=== PATIENT | female | born 1960 | race Caucasian/White ===

== ENCOUNTER 2018-05-31 13:48 | Emergency (ER) | payer MEDICAID ==
[~2018-05-31] VITALS: Ht 154.9 cm; Wt 68.2 kg
[~2018-05-31 13:48] MED LIST: AMLO2.5T2 PO; ASPI-1265 PO; LISI-600 PO; SIMV20TA5 PO; TRAZ-218 PO
[2018-05-31 13:50] VITALS: BP 122/81
[2018-05-31 14:30] LABS: BASOPHILS % (AUTO) 0.4 % (0-1); EOSINOPHILS # (AUTO) 0.2 X10'3 (0-0.9); EOSINOPHILS % (AUTO) 3.6 % (0-6); HEMATOCRIT 39.7 % (35.0-45.0); HEMOGLOBIN 13.3 g/dl (12.0-16.0); LYMPHOCYTES # (AUTO) 1.9 X10'3 (1.1-4.8); LYMPHOCYTES % (AUTO) 26.8 % (21-51); MEAN CORPUSCULAR HEMOGLOBIN 28.8 PG (27.0-31.0); MEAN CORPUSCULAR HGB CONC 33.4 % (33.0-36.5); MEAN CORPUSCULAR VOLUME 86.3 FL (78-98); MEAN PLATELET VOLUME 7.9 FL (7.4-10.4); MONOCYTES # (AUTO) 0.5 X10'3 (0-0.9); NEUTROPHILS # (AUTO) 4.3 X10'3 (1.8-7.7); NEUTROPHILS % (AUTO) 62.2 % (42-75); PLATELET COUNT 214 X10'3 (140-440); WHITE BLOOD COUNT 6.9 X10'3 (4.5-11.0)
[2018-05-31 14:35] LABS: ALANINE AMINOTRANSFERASE 14 U/L (12-78); ALBUMIN 3.6 G/DL (3.4-5.0); ALBUMIN/GLOBULIN RATIO 0.9 (1.1-1.5); ALKALINE PHOSPHATASE 84 IU/L (46-116); ANION GAP 9 (8-16); ASPARTATE AMINO TRANSFERASE 14 U/L (10-37); BILIRUBIN,TOTAL 0.4 MG/DL (0.1-1.0); BLOOD UREA NITROGEN 10 MG/DL (7-18); CHLORIDE 103 MMOL/L (99-107); CREATININE 0.91 MG/DL (0.40-0.90); GLUCOSE 109 MG/DL (70-104); POTASSIUM 3.7 MMOL/L (3.5-5.1); SODIUM 141 MMOL/L (135-145); TOTAL CARBON DIOXIDE 29.2 MMOL/L (24-32); TOTAL PROTEIN 7.8 G/DL (6.4-8.2); eGFR 64 ML/MIN
[2018-05-31 14:41] LABS: PARTIAL THROMBOPLASTIN TIME 27 SECONDS (22-32)
== END 2018-05-31 17:51 | disposition home or self-care (01) ==
LOC: ER 13:49
DX: R07.2 Precordial pain (principal); I10 Essential (primary) hypertension; G35 Multiple sclerosis; F17.200 Nicotine dependence, unspecified, uncomplicated; Z86.73 Personal history of transient ischemic attack (TIA), and cerebral infarction without residual deficits; Z90.49 Acquired absence of other specified parts of digestive tract; Z56.0 Unemployment, unspecified; Z79.899 Other long term (current) drug therapy; Z79.82 Long term (current) use of aspirin; Z88.5 Allergy status to narcotic agent; Z88.8 Allergy status to other drugs, medicaments and biological substances
CPT/HCPCS: 36415; 71045; 80053; 84484; 85025; 85610; 85730; 93005; 99284

== ENCOUNTER 2020-09-03 16:01 | Emergency (ER) | payer MEDICAID ==
[~2020-09-03] VITALS: Ht 154.9 cm; Wt 63.6 kg
[~2020-09-03 16:01] MED LIST changes: -LISI-600 PO; +LISI20TA28 PO; -TRAZ-218 PO; +TRAZ-251 PO
[2020-09-03 16:21] VITALS: BP 148/83
[2020-09-03 16:47] LABS: BASOPHILS % (AUTO) 0.5 % (0-1); EOSINOPHILS # (AUTO) 0.2 X10'3 (0-0.9); EOSINOPHILS % (AUTO) 2.2 % (0-6); HEMATOCRIT 40.8 % (35.0-45.0); HEMOGLOBIN 13.3 g/dl (12.0-16.0); LYMPHOCYTES # (AUTO) 1.5 X10'3 (1.1-4.8); LYMPHOCYTES % (AUTO) 20.1 % (21-51); MEAN CORPUSCULAR HEMOGLOBIN 28.2 PG (27.0-31.0); MEAN CORPUSCULAR HGB CONC 32.6 g/dL (33.0-36.5); MEAN CORPUSCULAR VOLUME 86.6 FL (78-98); MEAN PLATELET VOLUME 7.7 FL (7.4-10.4); MONOCYTES # (AUTO) 0.6 X10'3 (0-0.9); MONOCYTES % (AUTO) 7.7 % (2-12); NEUTROPHILS # (AUTO) 5.3 X10'3 (1.8-7.7); NEUTROPHILS % (AUTO) 69.5 % (42-75); PLATELET COUNT 215 X10'3 (140-440); RED BLOOD COUNT 4.71 X10'6 (4.20-5.60); RED CELL DISTRIBUTION WIDTH 15.8 % (11.5-14.5); WHITE BLOOD COUNT 7.7 X10'3 (4.5-11.0)
[2020-09-03 16:58] LABS: ALANINE AMINOTRANSFERASE 16 U/L (12-78); ALBUMIN 3.7 G/DL (3.4-5.0); ALBUMIN/GLOBULIN RATIO 0.9 (1.1-1.5); ALKALINE PHOSPHATASE 91 IU/L (46-116); ANION GAP 7 (8-16); ASPARTATE AMINO TRANSFERASE 12 U/L (10-37); BILIRUBIN,TOTAL 0.3 MG/DL (0.1-1.0); BLOOD UREA NITROGEN 8 MG/DL (7-18); BUN/CREATININE RATIO 9.1 (6.6-38.0); CALCIUM 9.3 MG/DL (8.5-10.1); CHLORIDE 108 MMOL/L (99-107); CREATININE 0.88 MG/DL (0.40-0.90); GLUCOSE 97 MG/DL (70-104); POTASSIUM 3.5 MMOL/L (3.5-5.1); SODIUM 145 MMOL/L (135-145); TOTAL CARBON DIOXIDE 29.7 MMOL/L (24-32); eGFR 66 ML/MIN
== END 2020-09-03 20:13 | disposition home or self-care (01) ==
LOC: ER 16:02
DX: R07.89 Other chest pain (principal); I10 Essential (primary) hypertension; Z86.73 Personal history of transient ischemic attack (TIA), and cerebral infarction without residual deficits; Z90.89 Acquired absence of other organs; Z98.890 Other specified postprocedural states; Z72.89 Other problems related to lifestyle; Z56.0 Unemployment, unspecified; Z88.8 Allergy status to other drugs, medicaments and biological substances; Z79.82 Long term (current) use of aspirin; Z79.899 Other long term (current) drug therapy
CPT/HCPCS: 36415; 71045; 80053; 83880; 84484; 85025; 93005; 99285

== ENCOUNTER 2021-04-02 12:02 | Emergency (ER) | payer MEDICAID ==
[~2021-04-02] VITALS: Ht 154.9 cm; Wt 65.9 kg
[2021-04-02 12:08] VITALS: BP 164/76
[2021-04-02] MEDS ORDERED: ketorolac tromethamine 15mg/ml inj. IM ONE (13:40)
[2021-04-02 14:30] LABS: BASOPHILS % (AUTO) 0.6 % (0-1); EOSINOPHILS # (AUTO) 0.2 X10'3 (0-0.9); EOSINOPHILS % (AUTO) 3.3 % (0-6); HEMATOCRIT 38.1 % (35.0-45.0); HEMOGLOBIN 12.6 g/dl (12.0-16.0); LYMPHOCYTES # (AUTO) 1.6 X10'3 (1.1-4.8); LYMPHOCYTES % (AUTO) 25.2 % (21-51); MEAN CORPUSCULAR HEMOGLOBIN 28.2 PG (27.0-31.0); MEAN CORPUSCULAR VOLUME 85.5 FL (78-98); MEAN PLATELET VOLUME 7.9 FL (7.4-10.4); MONOCYTES # (AUTO) 0.6 X10'3 (0-0.9); MONOCYTES % (AUTO) 8.7 % (2-12); NEUTROPHILS # (AUTO) 4.1 X10'3 (1.8-7.7); NEUTROPHILS % (AUTO) 62.2 % (42-75); PLATELET COUNT 221 X10'3 (140-440); RED BLOOD COUNT 4.46 X10'6 (4.20-5.60); RED CELL DISTRIBUTION WIDTH 15.3 % (11.5-14.5); WHITE BLOOD COUNT 6.5 X10'3 (4.5-11.0)
[2021-04-02 14:32] LABS: CLARITY,URINE SLIGHTLY CLOUDY (Clear); COLOR,URINE YELLOW (Yellow); GLUCOSE, URINE NEGATIVE (Neg); KETONES,URINE TRACE mg/dl (Neg); LEUKOCYTE ESTERASE ,URINE NEGATIVE (Neg); NITRITES, URINE NEGATIVE (Neg); OCCULT BLOOD,URINE NEGATIVE (Neg); PROTEIN,URINE TRACE mg/dl (Neg); UROBILINOGEN,URINE 0.2 E.U/dL (0.2-1.0)
[2021-04-02 14:50] LABS: ALANINE AMINOTRANSFERASE 15 U/L (12-78); ALBUMIN 3.7 G/DL (3.4-5.0); ALBUMIN/GLOBULIN RATIO 0.9 (1.1-1.5); ALKALINE PHOSPHATASE 73 IU/L (46-116); ANION GAP 10 (8-16); ASPARTATE AMINO TRANSFERASE 19 U/L (10-37); BILIRUBIN,TOTAL 0.4 MG/DL (0.1-1.0); BLOOD UREA NITROGEN 15 MG/DL (7-18); BUN/CREATININE RATIO 13.8 (6.6-38.0); CALCIUM 8.9 MG/DL (8.5-10.1); CHLORIDE 108 MMOL/L (99-107); CREATININE 1.09 MG/DL (0.40-0.90); GLUCOSE 103 MG/DL (70-104); LIPASE 196 U/L (73-393); POTASSIUM 3.2 MMOL/L (3.5-5.1); SODIUM 146 MMOL/L (135-145); TOTAL CARBON DIOXIDE 28.5 MMOL/L (24-32); TOTAL PROTEIN 7.8 G/DL (6.4-8.2); eGFR 52 ML/MIN
[2021-04-02] MEDS ORDERED: normal saline 1000ml 1,000 ML IV ONE (14:55)
[2021-04-02] MEDS ORDERED: potassium Cl 20 mEq SR tablet PO ONE (14:55)
[2021-04-02] MEDS ORDERED: diphenhydrAMINE 50 mg/ml inj IV ONE (14:55)
[2021-04-02 14:59] LABS: UA COLLECTION TYPE CLN CATCH MIDSTREAM
[2021-04-02 15:00] LABS: BACTERIA,URINE 1+ /HPF (Neg); MUCUS STRANDS FEW /LPF (Neg); RBC,URINE NONE SEEN /HPF (0-2); SQUAMOUS EPITHELIAL CELL,UR MANY /LPF (FEW)
[2021-04-02] MEDS ORDERED: CYCL-1 PO (15:04)
[2021-04-02] MEDS ORDERED: SULF1TAB45 PO (15:04)
--- NOTE | 2021-04-02 15:19 | NUR ---
orders to hold ivf and benadryl per alondra cevallos
== END 2021-04-02 15:20 | disposition home or self-care (01) ==
LOC: ER 12:02
DX: E87.6 Hypokalemia (principal); N39.0 Urinary tract infection, site not specified; M54.6 Pain in thoracic spine; G35 Multiple sclerosis; I10 Essential (primary) hypertension; Z86.73 Personal history of transient ischemic attack (TIA), and cerebral infarction without residual deficits; Z90.49 Acquired absence of other specified parts of digestive tract; Z98.891 History of uterine scar from previous surgery; Z56.0 Unemployment, unspecified; Z72.89 Other problems related to lifestyle; Z88.8 Allergy status to other drugs, medicaments and biological substances; Z79.82 Long term (current) use of aspirin; Z79.899 Other long term (current) drug therapy
CPT/HCPCS: 36415; 80053; 81001; 83690; 85025; 96372; 99283; J1885

== ENCOUNTER 2021-08-13 12:27 | Emergency (ER) | payer MEDICAID ==
[~2021-08-13] VITALS: Ht 154.9 cm; Wt 54.4 kg
[~2021-08-13 12:27] MED LIST changes: +CYCL-1 PO
[2021-08-13 12:49] VITALS: BP 162/77
[2021-08-13] MEDS ORDERED: AMOX-580 PO (13:05)
== END 2021-08-13 13:24 | disposition home or self-care (01) ==
LOC: ER 12:28
DX: K11.8 Other diseases of salivary glands (principal); I10 Essential (primary) hypertension; Z88.8 Allergy status to other drugs, medicaments and biological substances
CPT/HCPCS: 99283

== ENCOUNTER 2022-02-20 06:04 | Inpatient (IN) | payer MEDICAID ==
[2022-02-20] VITALS (9 sets, daily range): BP systolic 104–132; BP diastolic 54–69
[~2022-02-20] VITALS: Ht 154.9 cm; Wt 70.5 kg
[2022-02-20 08:01] LABS: BASOPHILS # (AUTO) 0.1 X10'3 (0-0.2); BASOPHILS % (AUTO) 0.7 % (0-1); EOSINOPHILS # (AUTO) 0.3 X10'3 (0-0.9); HEMATOCRIT 36.4 % (35.0-45.0); HEMOGLOBIN 12.6 g/dl (12.0-16.0); LYMPHOCYTES # (AUTO) 2.8 X10'3 (1.1-4.8); LYMPHOCYTES % (AUTO) 33.1 % (21-51); MEAN CORPUSCULAR HEMOGLOBIN 28.3 PG (27.0-31.0); MEAN CORPUSCULAR HGB CONC 34.5 g/dL (33.0-36.5); MEAN CORPUSCULAR VOLUME 82.1 FL (78-98); MEAN PLATELET VOLUME 7.7 FL (7.4-10.4); MONOCYTES # (AUTO) 0.6 X10'3 (0-0.9); MONOCYTES % (AUTO) 7.1 % (2-12); NEUTROPHILS # (AUTO) 4.8 X10'3 (1.8-7.7); NEUTROPHILS % (AUTO) 56.1 % (42-75); PLATELET COUNT 212 X10'3 (140-440); RED BLOOD COUNT 4.43 X10'6 (4.20-5.60); RED CELL DISTRIBUTION WIDTH 15.9 % (11.5-14.5); WHITE BLOOD COUNT 8.6 X10'3 (4.5-11.0)
[2022-02-20 08:15] LABS: ALANINE AMINOTRANSFERASE 15 U/L (12-78); ALBUMIN/GLOBULIN RATIO 0.9 (1.1-1.5); ALKALINE PHOSPHATASE 100 IU/L (46-116); ANION GAP 11 (8-16); ASPARTATE AMINO TRANSFERASE 14 U/L (10-37); BILIRUBIN,TOTAL 0.5 MG/DL (0.1-1.0); BLOOD UREA NITROGEN 12 MG/DL (7-18); BUN/CREATININE RATIO 12.9 (6.6-38.0); CALCIUM 9.2 MG/DL (8.5-10.1); CHLORIDE 105 MMOL/L (99-107); CREATININE 0.93 MG/DL (0.40-0.90); GLUCOSE 102 MG/DL (70-104); POTASSIUM 3.3 MMOL/L (3.5-5.1); SODIUM 142 MMOL/L (135-145); TOTAL CARBON DIOXIDE 25.8 MMOL/L (24-32); TOTAL PROTEIN 8.5 G/DL (6.4-8.2); eGFR 62 ML/MIN
[2022-02-20] MEDS ORDERED: iohexol 350MG/ML 100ml bottle IV ONE (08:45)
[2022-02-20 09:46] LABS: D-DIMER 8.37 MG/L FEU (0-0.50)
[2022-02-20] MEDS ORDERED: aspirin 81mg tab.chew PO ONE (11:35)
[2022-02-20] MEDS ORDERED: regadenoson 0.4mg/5ml syringe IV PRN (11:45)
[2022-02-20] MEDS ORDERED: HYDROcodone/acetaminophen 10/325mg tab PO PRN (11:45)
[2022-02-20] MEDS ORDERED: aminophylline 500mg/20ml vial IV PRN (11:45)
[2022-02-20] MEDS ORDERED: magnesium Cl slow-release 64mg tablet PO PRN (11:45)
[2022-02-20] MEDS ORDERED: HYDROcodone/acetaminophen 5mg/325mg tablet PO PRN (11:45)
[2022-02-20] MEDS ORDERED: mag hydrox/Alum hydrox/simeth 30ml oral suspension PO PRN (11:45)
[2022-02-20] MEDS ORDERED: nitroGLYCERIN 0.4mg SUBLingual tab SL PRN (11:45)
[2022-02-20] MEDS ORDERED: magnesium hydroxide 30ml (MOM) UD suspension PO PRN (11:45)
[2022-02-20] MEDS ORDERED: ondansetron/PF 4mg/2ml inj IV PRN (11:45)
[2022-02-20] MEDS ORDERED: magnesium 2GM in 50ml NS 50 ML IV PRN (11:45)
[2022-02-20] MEDS ORDERED: morphine 2 MG/ML inj. syringe IV PRN ×2 (11:45)
[2022-02-20] MEDS ORDERED: potassium CL 10mEq/100ml bag 100 ML IV PRN (11:45)
[2022-02-20] MEDS ORDERED: diphenhydrAMINE 25mg capsule PO PRN (11:45)
[2022-02-20] MEDS ORDERED: magnesium 4gm in 100ml NS 100 ML IV PRN (11:45)
[2022-02-20] MEDS ORDERED: metoprolol tartrate 1mg/ml inj IV PRN (11:45)
[2022-02-20] MEDS ORDERED: acetaminophen 325mg tablet PO PRN (11:45)
[2022-02-20] MEDS ORDERED: POTASSIUM BICARB 20meq eff tab 20 MEQ TABLET.EFF PO PRN ×2 (11:45)
[2022-02-20 12:18] LABS: CHOL/HDL RATIO 2.7 (0.00-4.99); CHOLESTEROL 171 MG/DL (0-200); HDL CHOLESTEROL 63 MG/DL (35-60); LDL CHOLESTEROL 91 MG/DL (50-100); MAGNESIUM 1.9 MG/DL (1.5-2.4); POTASSIUM 3.3 MMOL/L (3.5-5.1); TRIGLYCERIDES 71 MG/DL (20-135)
--- NOTE | 2022-02-20 14:11 | NUR ---
pt to nuc med on monitor with RN, pt able to transfer self without assist from gurney to wheelchair, c/o chest pain off and on, SB to SR on monitor, HR 52 to 60, 97% on room air
[2022-02-20] MEDS ORDERED: aminophylline inj. 0 ML IV ONE (14:32)
--- NOTE | 2022-02-20 14:50 | NUR ---
pt very anxious about having stress done, would like antianxiety med to complete test, Dr Esquivel gave verbal order valium 5mg IV x1 for stress test
[2022-02-20] MEDS ORDERED: diazepam inj 5 MG/ML inj. IV ONE (14:55)
--- NOTE | 2022-02-20 15:59 | NUR ---
PT BACK TO ER, REPORT TO DARIEN DEGROOT
[2022-02-20] MEDS ORDERED: AMLO10TA48 PO (16:51)
[2022-02-20] MEDS ORDERED: TRAZ-251 PO (16:51)
[2022-02-20] MEDS ORDERED: ASPI-1397 PO (16:56)
[2022-02-20] MEDS ORDERED: NAPR-996 PO (17:36)
--- NOTE | 2022-02-20 19:18 | NUR ---
Im confused about discharge orders for this patient?? I sent msg to Dr. Esquivel with no reponse, and I have just talked with Dr. Lima who says he will call Dr. Esquivel for clarification.
[2022-02-20] MEDS ORDERED: K and/or MAG REPLACEMENT MC SCH (20:00)
[2022-02-20] MEDS ORDERED: docusate sod 100mg capsule PO SCH (20:00)
[2022-02-21] MEDS ORDERED: aspirin 81mg, enteric-coated 1 TAB TABLET.DR PO SCH (08:00)
[2022-02-21] MEDS ORDERED: enoxaparin 40mg/0.4ml syringe SUBCUT SCH (08:00)
== END 2022-02-20 18:00 | disposition home or self-care (01) | DRG 203 ==
LOC: ER 06:05 → ED HOLD 11:52
PROVIDERS: ADMIT Internal Medicine; ATTEND Internal Medicine
PROC: BW241ZZ Computerized Tomography (CT Scan) of Chest and Abdomen using Low Osmolar Contrast (ICD-10-PCS; principal; 2022-02-20)
PROC: 4A02XM4 Measurement of Cardiac Total Activity, External Approach (ICD-10-PCS; 2022-02-20)
PROC: 3E033HZ Introduction of Radioactive Substance into Peripheral Vein, Percutaneous Approach (ICD-10-PCS; 2022-02-20)
DX: R07.89 Other chest pain (principal); E78.5 Hyperlipidemia, unspecified; F17.210 Nicotine dependence, cigarettes, uncomplicated; G35 Multiple sclerosis; I10 Essential (primary) hypertension; I71.4 Abdominal aortic aneurysm, without rupture; J44.9 Chronic obstructive pulmonary disease, unspecified; Z56.0 Unemployment, unspecified; Z79.82 Long term (current) use of aspirin; Z86.73 Personal history of transient ischemic attack (TIA), and cerebral infarction without residual deficits; Z90.49 Acquired absence of other specified parts of digestive tract; Z79.899 Other long term (current) drug therapy; Z88.8 Allergy status to other drugs, medicaments and biological substances
CPT/HCPCS: 36415; 71045; 71275; 74174; 78452; 80053; 80061; 83735; 83880; 84132; 84484; 85025; 85379; 87081; 93017; 93306; 99285; A9500; G0378; J0280; J2785; J3360; J3490; Q9967

== ENCOUNTER 2023-12-30 07:17 | Emergency (ER) | payer MEDICAID ==
[~2023-12-30] VITALS: Ht 152.4 cm; Wt 71.3 kg
[~2023-12-30 07:17] MED LIST changes: +AMLO-888 PO; -AMLO2.5T2 PO; -ASPI-1265 PO; +ASPI-1397 PO; -CYCL-1 PO; -LISI20TA28 PO; +NAPR-996 PO
[2023-12-30 07:21] VITALS: BP 113/63; PULSE 83; RESP 16; TEMP 98.7; O2SAT 96
== END 2023-12-30 10:54 | disposition home or self-care (01) ==
LOC: ER 07:18
DX: M54.2 Cervicalgia (principal); R22.1 Localized swelling, mass and lump, neck; I10 Essential (primary) hypertension; Z86.73 Personal history of transient ischemic attack (TIA), and cerebral infarction without residual deficits; Z90.49 Acquired absence of other specified parts of digestive tract; Z98.890 Other specified postprocedural states; Z72.89 Other problems related to lifestyle; Z56.0 Unemployment, unspecified; Z79.899 Other long term (current) drug therapy; Z79.1 Long term (current) use of non-steroidal anti-inflammatories (NSAID); Z79.82 Long term (current) use of aspirin; Z88.8 Allergy status to other drugs, medicaments and biological substances
CPT/HCPCS: 76881; 99284

== ENCOUNTER 2024-03-15 09:10 | Outpatient (CLI) | payer MEDICAID ==
[~2024-03-15 09:10] MED LIST changes: +iohexol 300mg/ml 100ml inj. ONE
== END 2024-03-15 23:59 | disposition home or self-care (01) ==
LOC: RAD 09:10
PROVIDERS: ATTEND Surgery
DX: R22.1 Localized swelling, mass and lump, neck (principal); M50.30 Other cervical disc degeneration, unspecified cervical region; M48.02 Spinal stenosis, cervical region; J43.9 Emphysema, unspecified; I70.0 Atherosclerosis of aorta
CPT/HCPCS: 70492; Q9967

== ENCOUNTER 2024-04-02 06:33 | Day surgery (SDC) | payer MEDICAID ==
[2024-03-28 15:51] LABS: BASOPHILS # (AUTO) 0.1 X10'3 (0-0.2); BASOPHILS % (AUTO) 0.8 % (0-1); EOSINOPHILS # (AUTO) 0.3 X10'3 (0-0.9); EOSINOPHILS % (AUTO) 4.1 % (0-6); LYMPHOCYTES # (AUTO) 1.6 X10'3 (1.1-4.8); LYMPHOCYTES % (AUTO) 24.8 % (21-51); MEAN CORPUSCULAR HEMOGLOBIN 27.4 PG (27.0-31.0); MEAN CORPUSCULAR HGB CONC 32.3 g/dL (33.0-36.5); MEAN PLATELET VOLUME 7.1 FL (7.4-10.4); MONOCYTES # (AUTO) 0.6 X10'3 (0-0.9); MONOCYTES % (AUTO) 10.1 % (2-12); NEUTROPHILS # (AUTO) 3.8 X10'3 (1.8-7.7); NEUTROPHILS % (AUTO) 60.2 % (42-75); PRE OP PLATELET COUNT 205 X10'3 (140-440); PRE OP WHITE BLOOD COUNT 6.3 10'3 (4.8-10.8); RED BLOOD COUNT 3.77 X10'6 (4.20-5.60); RED CELL DISTRIBUTION WIDTH 16.7 % (11.5-14.5)
[2024-03-28 15:56] LABS: ALBUMIN 3.5 G/DL (3.4-5.0); ALBUMIN/GLOBULIN RATIO 0.8 (1.1-1.5); ALKALINE PHOSPHATASE 95 IU/L (46-116); BLOOD UREA NITROGEN 11 MG/DL (7-18); CALCIUM 8.7 MG/DL (8.5-10.1); CHLORIDE 105 MMOL/L (99-107); PRE OP ALT 11 U/L (30-65); PRE OP ANION GAP 4 (8-16); PRE OP AST 15 U/L (10-37); PRE OP BILIRUB, TOTAL 0.5 MG/DL (0.0-1.0); PRE OP GLUCOSE 86 MG/DL (70-104); PRE OP POTASSIUM 3.8 MMOL/L (3.4-5.1); PRE OP SODIUM 141 MMOL/L (135-145); TOTAL CARBON DIOXIDE 31.8 MMOL/L (24-32); eGFR 50 ML/MIN
[2024-03-28 15:57] LABS: PRE OP HEMOGLOBIN 10.3 g/dL (12.0-16.0)
[~2024-04-02] VITALS: Ht 152.4 cm; Wt 73.3 kg
[2024-04-02] VITALS (14 sets, daily range): BP systolic 106–124; BP diastolic 51–74; PULSE 58–88; RESP 12–16; TEMP 98.1; O2SAT 79–100
[2024-04-02] MEDS: famotidine 20mg tablet PO ONE (05:30)
[2024-04-02] MEDS: ringers solution, lacted 1,000 ML IV SCH (05:30)
[2024-04-02] MEDS: cefazolin 2gm/D5W 100mL 100 ML IV ONE (05:30)
[~2024-04-02 06:33] MED LIST changes: -AMLO-888 PO; +AMLO10TA13 PO; +DULO60CA65 PO; -NAPR-996 PO; +SIMV-343 PO; -SIMV20TA5 PO; -TRAZ-251 PO; -iohexol 300mg/ml 100ml inj. ONE
[2024-04-02] MEDS ORDERED: ringers solution, lacted 1,000 ML IV SCH (08:10)
[2024-04-02] MEDS ORDERED: hydrALAZINE 20mg/ml inj. IV PRN (08:10)
[2024-04-02] MEDS ORDERED: labetalol 20mg/4ml (5mg/ml) syringe IV PRN (08:10)
[2024-04-02] MEDS ORDERED: ondansetron/PF 4mg/2ml inj IV PRN (08:10)
[2024-04-02] MEDS ORDERED: proCHLORperazine 10 MG/2 ml inj IV PRN (08:10)
[2024-04-02] MEDS ORDERED: morphine 2 MG/ML inj. syringe IV PRN ×2 (08:10)
[2024-04-02] MEDS ORDERED: morphine 4 MG/ML inj SYRINge IV PRN ×2 (08:10)
[2024-04-02] MEDS ORDERED: meperidine/PF 25mg/ml syringe IV PRN (08:10)
[2024-04-02] MEDS ORDERED: acetaminophen 1,000mg/100ml IV 100 ML IV ONE (08:10)
[2024-04-02] MEDS ORDERED: sevoflurane 250ml liquid IH ONE (09:02)
[2024-04-02] MEDS ORDERED: fentaNYL/PF 50MCG/1 ML 2ML syringe ONE (09:12)
[2024-04-02] MEDS ORDERED: midazolam 1 mg/ML 2ml injection ONE (09:13)
[2024-04-02] MEDS ORDERED: LIDOcaine 2% (20mg/ml) 5ml vial ONE (09:22)
[2024-04-02] MEDS ORDERED: propofol inj 20 ML IV ONE ×2 (09:22→10:04)
[2024-04-02] MEDS ORDERED: dexamethasone sod phosphate 4mg/ml inj. ONE (09:23)
[2024-04-02] MEDS ORDERED: ondansetron/PF 4mg/2ml inj ONE (09:23)
[2024-04-02] MEDS: LIDOcaine 1% 30ml preserv. free vial ONE (09:32)
[2024-04-02] MEDS: BUPIVAcaine 2.5mg/ml inj 50ml vial (contains preservative) ONE (09:32)
[2024-04-02] MEDS ORDERED: HYDROcodone/acetaminophen 5mg/325mg tablet PO PRN (10:25)
== END 2024-04-02 13:16 | disposition home or self-care (01) ==
LOC: PAS 06:33
PROVIDERS: ATTEND Surgery
DX: R22.2 Localized swelling, mass and lump, trunk (principal); M79.89 Other specified soft tissue disorders; I10 Essential (primary) hypertension; E78.5 Hyperlipidemia, unspecified; F41.9 Anxiety disorder, unspecified; Z87.891 Personal history of nicotine dependence; Z86.73 Personal history of transient ischemic attack (TIA), and cerebral infarction without residual deficits; Z79.82 Long term (current) use of aspirin; Z79.899 Other long term (current) drug therapy; Z88.8 Allergy status to other drugs, medicaments and biological substances
CPT/HCPCS: 21552; 36415; 80053; 82948; 85025; 93005; J0690; J1100; J2250; J2405; J2704; J3010; J3490; J7030; J7120; Z7506; Z7508; Z7512; A4215; A4618; A7000

== ENCOUNTER 2024-09-18 18:21 | Emergency (ER) | payer MEDICAID ==
[~2024-09-18] VITALS: Ht 152.4 cm; Wt 69.0 kg
[2024-09-18] MEDS: ondansetron/PF 4mg/2ml inj IV ONE (18:48)
[2024-09-18] MEDS: normal saline 1000ml 1,000 ML IV ONE ×2 (18:48→19:46)
[2024-09-18 18:56] LABS: BASOPHILS # (AUTO) 0.1 X10'3 (0-0.2); BASOPHILS % (AUTO) 0.9 % (0-1); EOSINOPHILS # (AUTO) 0.7 X10'3 (0-0.9); HEMATOCRIT 30.7 % (35.0-45.0); HEMOGLOBIN 10.1 g/dl (12.0-16.0); LYMPHOCYTES # (AUTO) 0.9 X10'3 (1.1-4.8); LYMPHOCYTES % (AUTO) 8.4 % (21-51); MEAN CORPUSCULAR HEMOGLOBIN 29.8 PG (27.0-31.0); MEAN CORPUSCULAR HGB CONC 32.9 g/dL (33.0-36.5); MEAN CORPUSCULAR VOLUME 90.8 FL (78-98); MEAN PLATELET VOLUME 6.5 FL (7.4-10.4); MONOCYTES % (AUTO) 9.8 % (2-12); NEUTROPHILS # (AUTO) 7.9 X10'3 (1.8-7.7); NEUTROPHILS % (AUTO) 73.9 % (42-75); PLATELET COUNT 401 X10'3 (140-440); RED BLOOD COUNT 3.38 X10'6 (4.20-5.60); RED CELL DISTRIBUTION WIDTH 18.9 % (11.5-14.5); WHITE BLOOD COUNT 10.6 X10'3 (4.5-11.0)
[2024-09-18 19:04] LABS: INR 1.1 INR; PROTHROMBIN TIME 11.4 SECONDS (9.0-12.0)
[2024-09-18] MEDS ORDERED: DULO30CA52 PO (19:11)
[2024-09-18] MEDS ORDERED: OMEP20CA16 (19:11)
[2024-09-18] MEDS ORDERED: LISI20TA28 PO (19:11)
[2024-09-18] MEDS ORDERED: SUCR1ORA15 PO (19:11)
[2024-09-18] MEDS ORDERED: LIDO1ADH67 (19:11)
[2024-09-18] MEDS ORDERED: OXYC-658 (19:11)
[2024-09-18] MEDS ORDERED: TRAZ-251 PO (19:11)
[2024-09-18] MEDS ORDERED: ATOR-2 PO (19:11)
[2024-09-18] MEDS ORDERED: ACET-75 (19:11)
[2024-09-18] MEDS ORDERED: SIMV-45 PO (19:11)
[2024-09-18] MEDS ORDERED: SENN-360 PO (19:11)
[2024-09-18] MEDS ORDERED: CYCL-920 PO (19:11)
[2024-09-18 19:16] LABS: ALANINE AMINOTRANSFERASE 24 U/L (12-78); ALBUMIN 2.5 G/DL (3.4-5.0); ALBUMIN/GLOBULIN RATIO 0.5 (1.1-1.5); ALKALINE PHOSPHATASE 207 IU/L (46-116); ANION GAP 10 (8-16); ASPARTATE AMINO TRANSFERASE 37 U/L (10-37); BILIRUBIN,TOTAL 0.7 MG/DL (0.1-1.0); BLOOD UREA NITROGEN 9 MG/DL (7-18); BUN/CREATININE RATIO 8.8 (10.0-20.0); CALCIUM 8.6 MG/DL (8.5-10.1); CHLORIDE 104 MMOL/L (99-107); CREATININE 1.02 MG/DL (0.40-0.90); GLUCOSE 103 MG/DL (70-104); POTASSIUM 3.7 MMOL/L (3.5-5.1); SODIUM 140 MMOL/L (135-145); TOTAL CARBON DIOXIDE 25.9 MMOL/L (24-32); TOTAL PROTEIN 7.9 G/DL (6.4-8.2); eCRCL 41 ML/MIN; eGFR 55 ML/MIN
[2024-09-18 19:24] LABS: LIPASE 320 U/L (16-77); PRO BRAIN NATRIURETIC PEPTIDE 1267 PG/ML (0-125)
[2024-09-18 19:28] LABS: PLATELET ESTIMATE NORMAL
[2024-09-18 19:29] LABS: ANISOCYTOSIS 2+; POIKILOCYTOSIS FEW
[2024-09-18] MEDS ORDERED: iohexol 350MG/ML 100ml bottle IV ONE ×2 (20:12→20:34)
[2024-09-18] MEDS: fentaNYL/PF 50MCG/1 ML 2ML syringe IV ONE (20:22)
[2024-09-18] MEDS: acetaminophen 1,000mg/100ml IV 100 ML IV ONE (21:24)
[2024-09-18] MEDS ORDERED: ONDA-245 PO (22:41)
[2024-09-18] MEDS: proCHLORperazine 10 MG/2 ml inj IV ONE (23:16)
[2024-09-18 23:32] LABS: BILIRUBIN,URINE NEGATIVE (Neg); CLARITY,URINE CLEAR (Clear); COLOR,URINE YELLOW (Yellow); GLUCOSE, URINE NEGATIVE (Neg); KETONES,URINE NEGATIVE (Neg); LEUKOCYTE ESTERASE ,URINE NEGATIVE (Neg); NITRITES, URINE NEGATIVE (Neg); OCCULT BLOOD,URINE SMALL (Neg); PH,URINE 7.5 (4.8-8.0); PROTEIN,URINE NEGATIVE (Neg); UROBILINOGEN,URINE 0.2 E.U/dL (0.2-1.0)
[2024-09-18 23:47] LABS: UA COLLECTION TYPE NON-SPECIFIED
[2024-09-18 23:48] LABS: BACTERIA,URINE FEW /HPF (Neg); SQUAMOUS EPITHELIAL CELL,UR MODERATE /LPF (FEW); WBC,URINE 0-4 /HPF (0-4)
[2024-09-19 01:32] VITALS: BP 110/64; PULSE 74; RESP 16; TEMP 97.6; O2SAT 99
== END 2024-09-19 01:37 | disposition home or self-care (01) ==
LOC: ER 18:22
DX: K85.90 Acute pancreatitis without necrosis or infection, unspecified (principal); I10 Essential (primary) hypertension; G35 Multiple sclerosis; Z86.73 Personal history of transient ischemic attack (TIA), and cerebral infarction without residual deficits; Z88.8 Allergy status to other drugs, medicaments and biological substances; Z90.49 Acquired absence of other specified parts of digestive tract
CPT/HCPCS: 36415; 71045; 71275; 74174; 74177; 80053; 81001; 83690; 83880; 84484; 85008; 85025; 85610; 93005; 96361; 96374; 96375; 99285; J0131; J0780; J2405; J3010; J7030; Q9967

== ENCOUNTER 2024-12-20 19:17 | Emergency (ER) | payer MEDICAID ==
[~2024-12-20] VITALS: Ht 152.4 cm; Wt 66.8 kg
[~2024-12-20 19:17] MED LIST changes: +ACET-75; +ATOR-2 PO; +CYCL-920 PO; +DULO30CA52 PO; -DULO60CA65 PO; +LIDO1ADH67; +LISI20TA28 PO; +OMEP20CA16; +ONDA-245 PO; +OXYC-658; +SENN-360 PO; +SIMV-45 PO; +SUCR1ORA15 PO; +TRAZ-251 PO
[2024-12-20 19:28] VITALS: BP 117/61; PULSE 69; RESP 16; O2SAT 100
[2024-12-20 20:06] LABS: LEUKOCYTE ESTERASE ,URINE SMALL (Neg); NITRITES, URINE NEGATIVE (Neg); OCCULT BLOOD,URINE SMALL (Neg)
[2024-12-20 20:07] LABS: UA COLLECTION TYPE CLN CATCH MIDSTREAM
[2024-12-20 20:16] LABS: MUCUS STRANDS FEW /LPF (Neg); SQUAMOUS EPITHELIAL CELL,UR FEW /LPF (FEW)
--- NOTE | 2024-12-20 20:17 | Physician Documentation ---
History of Present Illness ~ Chief Complaint: Urinary Symptoms Stated Complaint: BLADDER INFECTION Time Seen by MD: 19:37 Primary Medical Doctor: [facility] This is a 64-year-old female who presents with urinary frequency for the past day, patient reports symptoms are consistent with her previous UTIs. Patient reports no pain or fevers. Patient reports no other acute symptoms or concerns. Medication Reconciliation Allergies: Coded Allergies: omeprazole (Verified Allergy, Unknown, 12/20/24) omeprazole magnesium (Verified Allergy, Unknown, 12/20/24) potassium (Verified Adverse Reaction, Unknown, ITCHING, RASH, 12/20/24) Patient can take PO not IV Scheduled Amlodipine Besylate (Amlodipine Besylate), 1 TAB PO QPM, (Reported) Aspirin (Aspirin EC), 1 TAB PO QPM, (Reported) Atorvastatin Calcium (Atorvastatin Calcium), 1 TAB PO DAILY, (Reported) Cephalexin*Monohydrate* (Keflex*), 1 CAP PO QID Cyclobenzaprine HCl (Cyclobenzaprine HCl), 1 TAB PO BID, (Reported) Duloxetine HCl (Duloxetine HCl), 1 CAP PO DAILY, (Reported) Lisinopril (Lisinopril), 1 TAB PO DAILY, (Reported) Ondansetron 8mg ODT (Ondansetron Odt), 1 TAB PO Q6H Sennosides (Senna), 2 TAB PO DAILY, (Reported) Simvastatin (Zocor), 40 MG PO QPM, (Reported) Simvastatin (Simvastatin), 1 TAB PO HS, (Reported) Trazodone HCl (Trazodone HCl), 1.5 TAB PO HS, (Reported) Miscellaneous Medications Acetaminophen (Acetaminophen), (Reported) Lidocaine (Lidocaine Pain Relief), (Reported) Omeprazole (Omeprazole), (Reported) Oxycodone Hcl IR* (Oxycodone IR*), (Reported) Sucralfate (Sucralfate), ML PO, (Reported) Past Medical History Past Medical History: CVA/TIA/Stroke, Multiple Sclerosis, Hypertension, Pancreatitis Past Surgical History: appendectomy, , other Alcohol Use: Occasionally Drug Use: none Lives with: Spouse Lives In: Home Occupation: unemployed Review of Systems ROS Urinary frequency as stated above in the HPI, otherwise all systems are reviewed and negative. Physical Exam Vital Signs: Temperature: 97.3, Source: Temporal, Heart Rate: 69, Respiratory Rate: 16, BP: 117/61, Pulse Oximetry: 100, Weight: 66.800 Oxygen Flow Rate: 0 Physical Exam VITALS: Reviewed and as above. GENERAL: Alert, nontoxic appearing, no apparent distress. RESPIRATORY: No increased work of breathing, no respiratory distress, speaking in full clear sentences BACK: No CVA tenderness Progress Results/Orders Results/Orders Completed Orders - KIT WILLSON Cephalexin Capsule (Keflex Capsule) (12/20/24 20:35) Medications Received in ER Medications (Trade) Dose Ordered Sig/Sung Route PRN Reason Start Time Stop Time Status Last Admin Dose Admin (Keflex capsule) 500 mg ONCE ONCE PO 12/20/24 20:35 12/20/24 20:36 DC 12/20/24 20:45 500 MG Vital Signs 12/20/24 12/20/24 19:28 20:47 Temp 97.3 97.3 Pulse 69 Resp 16 B/P (MAP) 117/61 Pulse Ox 100 O2 Flow Rate 0 Laboratory Tests Test 12/20/24 19:50 Urine Specimen Description Cln catch midstream Urine Color Yellow Urine Clarity Clear Urine pH 6.0 Urine Specific [place] 1.025 Urine Protein Negative Urine Glucose (UA) Negative Urine Ketones Negative Urine Occult Blood Small Urine Nitrite Negative Urine Bilirubin Negative Urine Urobilinogen 0.2 Urine Leukocyte Esterase Small H Urine RBC 0-2 Urine WBC 50-100 H Urine Squamous Epithelial Cells Few Urine Bacteria Few Urine Mucus Few Urine Culture Indicated Indicated Volume Urine Centrifuged 10 ml Urine Comment Medical Decision Making Findings A 64-year-old female presented with one day of urinary frequency, patient reported symptoms are consistent with her previous UTIs and patient did not have pain or fever. Urinalysis demonstrated evidence of urinary tract infection. Patient is otherwise well-appearing and physical exam was benign. Patient vital signs are stable and she is appropriate for outpatient follow up. Patient discharged on oral course of antibiotics. Patient provided home care instructions, follow up instructions, and return to care precautions which she verbalized understanding of. Urinary Diff Dx:Considerations: Include: Urinary Obstruction, Urolithiasis, Urinary retention, UTI, Vaginitis Departure Time of Disposition: 20:34 Disposition: 01 HOME / SELF CARE / HOMELESS Impression: Primary Impression: Acute urinary tract infection Condition: Improved Discharge Instructions: Urinary Tract Infection, Adult Additional Instructions: Stay well hydrated. Please take the antibiotics as prescribed. Please follow up with your primary care provider in the next few days. Please return to the emergency department for any new or worsening concerning symptoms. Referrals: NO PRIMARY CARE PROVIDER (PCP) Prescriptions Cephalexin*Monohydrate* (Keflex*) 500 Mg Capsule 1 CAP PO QID for 5 Days, #20 CAP Prov: KIT WILLSON 12/20/24 Education Educated: Patient Educated regarding: diagnosis, treatment, prognosis, need for follow up Signature Scribe Signature: No scribe Attestation: The note accurately reflects work and decisions made by me.MARIIA Leung 12/20/24 20:42 KIT WILLSON Dec 20, 2024 20:17
[2024-12-20] MEDS ORDERED: CEPH-585 PO (20:34)
[2024-12-20 20:47] VITALS: TEMP 97.3
== END 2024-12-20 20:47 | disposition home or self-care (01) ==
LOC: ER 19:18
DX: N39.0 Urinary tract infection, site not specified (principal); I10 Essential (primary) hypertension; Z86.73 Personal history of transient ischemic attack (TIA), and cerebral infarction without residual deficits; Z90.49 Acquired absence of other specified parts of digestive tract; Z88.8 Allergy status to other drugs, medicaments and biological substances; Z79.899 Other long term (current) drug therapy; Z72.89 Other problems related to lifestyle; Z56.0 Unemployment, unspecified
CPT/HCPCS: 81001; 87088; 99283